=== PATIENT | female | born 1975 | race Two or more races ===

== ENCOUNTER 2018-10-31 15:14 | Inpatient (IN) | payer OTHER ==
[~2018-10-31] VITALS: Ht 157.5 cm; Wt 80.7 kg
[2018-11-11] MEDS ORDERED: PRENATABS RX T1 EACH PO (15:14)
[2018-11-13] MEDS ORDERED: ZANTAC150 M3 PO (19:50)
== END 2018-11-16 12:57 | disposition home or self-care (01) | DRG 785 ==
LOC: LDR 11-11 14:15 → OB/GYN 11-13 17:47 → LDR 11-13 17:47 → OB/GYN 11-13 20:55 → LDR 11-16 14:15
PROVIDERS: ADMIT Obstetrics & Gynecology Maternal & Fetal Medicine
PROC: 0UL70ZZ Occlusion of Bilateral Fallopian Tubes, Open Approach (ICD-10-PCS; 2018-11-13)
PROC: 4A0HXFZ Measurement of Products of Conception, Cardiac Rhythm, External Approach (ICD-10-PCS; 2018-11-13)
PROC: 10D00Z1 Extraction of Products of Conception, Low, Open Approach (ICD-10-PCS; principal; 2018-11-13 17:00)
DX: O82 Encounter for cesarean delivery without indication (principal); Z37.0 Single live birth; Z3A.38 38 weeks gestation of pregnancy; Z30.2 Encounter for sterilization

== ENCOUNTER 2018-11-07 10:08 | Outpatient (CLI) | payer OTHER | END 2018-11-07 11:45 | disposition home or self-care (01) | LOC: NST 10:08 | DX: Z34.83 Encounter for supervision of other normal pregnancy, third trimester (principal) ==

== ENCOUNTER 2018-11-11 10:35 | Outpatient (CLI) | payer OTHER ==
[2018-11-11] MEDS ORDERED: PRENATABS RX T1 EACH PO (15:14)
== END 2018-11-11 11:53 | disposition home or self-care (01) ==
LOC: NST 10:35
DX: Z34.83 Encounter for supervision of other normal pregnancy, third trimester (principal)